=== PATIENT | female | born 1990 | race Caucasian/White ===

== ENCOUNTER 2017-10-18 04:19 | Emergency (ER) | payer SELFPAY ==
[~2017-10-18] VITALS: Ht 154.9 cm
[~2017-10-18 04:19] MED LIST: AMOXICILLIN500 MG PO; ULTRAM50 MG PO
[2017-10-18] MEDS ORDERED: NARCAN4 MG NS (04:51)
[2017-10-18 05:30] VITALS: BP 138/94
== END 2017-10-18 05:30 | disposition home or self-care (01) ==
LOC: EME → EDBD 04:19 → EME 05:30
DX: T40.1X1A Poisoning by heroin, accidental (unintentional), initial encounter (principal)